=== PATIENT | female | born 1965 | race Caucasian/White ===

== ENCOUNTER → 2017-06-16 | Outpatient (CLI) | payer OTHER | LOC: MAMMO 14:50 | DX: Z12.31 Encounter for screening mammogram for malignant neoplasm of breast (principal) ==

== ENCOUNTER 2017-10-05 13:00 | Outpatient (RCR) | payer OTHER | END 2017-10-05 13:30 | disposition home or self-care (01) | LOC: PT 13:00 | DX: M25.552 Pain in left hip (principal) ==

== ENCOUNTER → 2018-08-23 | Outpatient (CLI) | payer OTHER | LOC: MAMMO 11:30 | DX: Z12.31 Encounter for screening mammogram for malignant neoplasm of breast (principal) ==

== ENCOUNTER → 2019-12-12 | Outpatient (CLI) | payer OTHER | LOC: MAMMO 15:03 | DX: Z12.31 Encounter for screening mammogram for malignant neoplasm of breast (principal) ==

== ENCOUNTER → 2020-01-09 | Outpatient (CLI) | payer OTHER | LOC: RAD 01-04 09:00 | DX: S83.241A Other tear of medial meniscus, current injury, right knee, initial encounter (principal); M17.11 Unilateral primary osteoarthritis, right knee; M22.41 Chondromalacia patellae, right knee; M65.88 Other synovitis and tenosynovitis, other site ==

== ENCOUNTER → 2021-01-07 | Outpatient (CLI) | payer OTHER | LOC: MAMMO 13:00 | DX: Z12.31 Encounter for screening mammogram for malignant neoplasm of breast (principal) ==

== ENCOUNTER → 2021-01-17 | Outpatient (CLI) | payer OTHER | LOC: RAD 14:30 | DX: K44.9 Diaphragmatic hernia without obstruction or gangrene (principal); M47.896 Other spondylosis, lumbar region | CPT/HCPCS: Q9967 ==

== ENCOUNTER → 2021-01-28 | Outpatient (CLI) | payer OTHER | LOC: RAD 14:49 | DX: R60.0 Localized edema (principal); R63.5 Abnormal weight gain ==

== ENCOUNTER 2021-05-13 11:05 | Outpatient (RCR) | payer OTHER | END 2021-05-15 | disposition home or self-care (01) | LOC: PT | DX: M25.561 Pain in right knee (principal); Z96.651 Presence of right artificial knee joint ==

== ENCOUNTER 2021-05-20 11:22 | Outpatient (RCR) | payer OTHER | END 2021-06-14 | disposition still patient (30) | LOC: PT | DX: M25.561 Pain in right knee (principal); Z96.651 Presence of right artificial knee joint ==

== ENCOUNTER → 2023-03-16 | Outpatient (CLI) | payer OTHER ==
[~2023-03-16] MED LIST: ESOMEPRAZOLE MA40 M1 PO; ZESTRIL5 M1 PO; ZOLMITRIPTAN2.5 MG PO; [UNRECOGNIZED DRUG - OTHER] PO
== END ==
LOC: MAMMO 14:44
DX: Z12.31 Encounter for screening mammogram for malignant neoplasm of breast (principal)

== ENCOUNTER → 2024-04-27 | Outpatient (CLI) | payer OTHER | LOC: MAMMO 14:51 | DX: Z12.31 Encounter for screening mammogram for malignant neoplasm of breast (principal) ==